=== PATIENT | male | born 1955 | race Asian ===

== ENCOUNTER 2018-12-20 09:54 | Outpatient (CLI) | payer OTHER ==
--- NOTE | 2018-12-20 11:02 | XRay Report ---
LUMBAR SPINE HISTORY: Disability exam COMPARISON: None. TECHNIQUE: 3 view(s) of the lumbar spine obtained. FINDINGS: Vertebrae: Normal alignment. No fracture or significant abnormality. Disc Spaces:No significant abnormality. Facet Joints:Extensive facet hypertrophy and facet joint fusion. Additional findings: Large anterior and lateral bulky flowing osteophytes at all levels. The largest are at L4-5 and L5-S1. IMPRESSION: Changes in the lumbar spine typical of diffuse idiopathic skeletal hyperostosis (DISH). Signer Name: Hammad Barton MD Signed: 12/20/2018 10:58 AM Workstation Name: [id number]
--- NOTE | 2018-12-20 11:04 | XRay Report ---
THORACIC SPINE HISTORY: Disability exam. COMPARISON: None. TECHNIQUE: 2 view(s) of the lumbar spine obtained. FINDINGS: Vertebrae: Normal alignment. No fracture or significant abnormality. Disc Spaces:No significant abnormality. Facet Joints:No significant abnormality. Additional findings: Anterior and lateral flowing relatively large osteophytes at all levels. No frac ture. IMPRESSION: Changes in the thoracic spine typical of diffuse idiopathic skeletal hyperostosis (DISH). Signer Name: Hammad Barton MD Signed: 12/20/2018 11:00 AM Workstation Name: [id number]
--- NOTE | 2018-12-20 11:08 | XRay Report ---
AP and lateral views of both knees. INDICATION / CLINICAL INFORMATION: DISABILITY EXAM. Bilateral knee pain COMPARISON: None available. FINDINGS: BONES/JOINT(S): No acute fracture or subluxation. 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 No significant joint effusion. Overall normal bone mineralization. SOFT TISSUES: Scattered small atherosclerotic calcifications. ADDITIONAL FINDINGS: None. Signer Name: Asael Prado MD Signed: 12/20/2018 11:04 AM Workstation Name: [id number]
== END 2018-12-20 09:55 | disposition home or self-care (01) ==
LOC: XRAY 09:54
PROVIDERS: ATTEND Internal Medicine
DX: Z02.71 Encounter for disability determination (principal); I70.0 Atherosclerosis of aorta; M48.14 Ankylosing hyperostosis [Forestier], thoracic region; M48.16 Ankylosing hyperostosis [Forestier], lumbar region
CPT/HCPCS: 72070; 72100